=== PATIENT | male | born 1975 | race Caucasian/White ===

== ENCOUNTER 2016-10-22 12:26 | Emergency (ER) | payer OTHER ==
--- NOTE | ~2016-10-22 | ER ---
PATIENT'S NAME: GAURANG CHAMBERLAIN [facility] AGE: 41 Y [address] ROOM: [place] [address] LOCATION: ED ADMIT DATE: 10/22/2016 ER/Outpatient Report DISCHARGE DATE: 10/22/2016 FAMILY PHYSICIAN: Ruben Mitchell MD ATTENDING PHYSICIAN: Ruben Resendiz Time of Admission: 1226 hours. Time of Evaluation: 1245 hours. CHIEF COMPLAINT: Right flank/back pain. HISTORY OF PRESENT ILLNESS: Gaurang is a 41-year-old male presents with his to the emergency room with an onset of right flank pain/back pain that originated around 8 o'clock this morning. He reports he had quite a bit of this type of pain on Tuesday and then it did seize and he thought maybe he passed a little stone. He reports he was pain-free all day up until 8 o'clock this morning. The patient does have a history of kidney stones in the past, reports with all of them he has been able to pass them on his own. He reports his urinary output has been decreased, but he denies any blood in the urine. He denies any nausea at this time. No vomiting or diarrhea. No fevers and/or chills. The patient has not experienced any recent URI symptoms. His bowel movements have been regular. PAST MEDICAL HISTORY: 1. History of nephrolithiasis. 2. Postoperative right hip replacement, May 2016. 3. History of ureteral surgeries, as an infant. ALLERGIES: KEFLEX. CURRENT MEDICATIONS: The patient denies taking any medications on a routine basis. Denies any vitamins or calcium supplements. SOCIAL HISTORY: The patient is . He does live in [place], [place]. He does chew tobacco, nonsmoker. No regular alcohol use. He is up to date with his immunizations. FAMILY HISTORY: Not obtained. PATIENT'S NAME: GAURANG CHAMBERLAIN [facility] AGE: 41 Y [address] ROOM: [place] [address] LOCATION: [facility] ADMIT DATE: 10/22/2016 ER/Outpatient Report DISCHARGE DATE: 10/22/2016 FAMILY PHYSICIAN: Ruben Mitchell MD ATTENDING PHYSICIAN: Ruben Resendiz REVIEW OF SYSTEMS: All systems reviewed by me and negative with the exception of those discussed in the HPI. PHYSICAL EXAMINATION: VITAL SIGNS: Current height 6 feet 1 inch, weight 154.2 kg, temp 97.5, pulse 80, respirations 18, and blood pressure is 123/86. He is 94% on room scale. Current pain is 10/10. GENERAL: Gaurang is alert, cooperative, but in moderate distress due to the discomfort. SKIN: Overall is within normal limits. There is no pallor, no diaphoresis noted. EYES: Sclerae are nonicteric. Pupils equal, round, and reactive to light. CHEST AND LUNGS: Lung sounds are clear throughout. HEART: Regular rhythm. No murmurs appreciated. ABDOMEN: Soft, obese. There is no pain to his anterior abdomen. Right flank area is exquisitely tender. CVA tenderness is present. There is no pain to the left side. He does have a little bit of radiation from the right flank into the right scrotal area. LOWER EXTREMITIES: No peripheral edema is noted. NEUROLOGIC: No focal deficits are noted. Cranial nerves grossly intact. Gait is steady. LABORATORY DATA: WBC 15.3, hemoglobin 16.3, platelet count is 275. Sodium 139, potassium 3.9, creatinine 1.2. BUN is 16. Amylase and lipase within normal limits. Urinalysis does show 25 leukocytes, rare wbc's, 20-50 red blood cells, 0-2 epithelial, and rare bacteria. This was reviewed with Dr. Ching, urologist. IMAGING DATA: CT of the abdomen and pelvis, renal protocol was obtained. The radiologist did call and confirm a 6 mm proximal obstructing stone in the right ureter, this report was given to Dr. Ruben Resendiz. Official written report is pending. ASSESSMENT: 1. Right side proximal obstructing kidney stone, 6 mm. 2. Leukocytosis. PLAN: I did consult with Dr. Ching, in which I did call him at 1340 hours. He did give myself 2 options after he reviewed his history and current assessment. He did offer for the patient to go home and follow up in the office in 2 weeks for a KUB, take Flomax daily, and also continue with pain medications and PATIENT'S NAME: GAURANG CHAMBERLAIN [facility] AGE: 41 Y [address] ROOM: [place], [place] [address] LOCATION: [facility] ADMIT DATE: 10/22/2016 ER/Outpatient Report DISCHARGE DATE: 10/22/2016 FAMILY PHYSICIAN: Ruben Mitchell MD ATTENDING PHYSICIAN: Ruben Resendiz nausea medicines as needed. Where the other option is for him to be admitted here for pain control and fluids and for him to do a stent here over the weekend. I did review these options with the patient and he would prefer to go home and see how things go. The patient is sent home a script for Flomax 0.4 mg 1 p.o. daily #14 with no refills, [place] 10/325 one p.o. every 4 hours p.r.n. pain #24 with no refills, and also Zofran ODT 4 mg 1 p.o. every 6 hours p.r.n. nausea and vomiting, #30 with no refills. The patient did receive IV fluids, Flomax 0.4 mg x1, morphine 4 mg IV x1. His pain did decrease down to a 2-3 and he was very comfortable. He did not experience any nausea here in the emergency room. His is with him and she is very comfortable with these instructions and knows that if he would have any fever, chills, nausea, vomiting, and/or increased pain, he is to return to the emergency room. The patient is given a card to Dr. Ching's office and he is to follow up with him in 2 weeks. The patient is to increase his water intake to 2-3 L daily, strain his urine, and to cut down on caffeine intake. The patient was given 1 [place] in the emergency room prior to discharge to make sure that he could hold this down, he did well with it. Dr. Resendiz is in conjunction with plan of care, agreeable. The patient's condition is stable. JASON HERNANDEZ APRN FOR MD ARCHANA HARRISON/jackl /[id number] d: 10/22/162113 t: 05/16/17 1640, OUTPATIENT REPORT
[2016-10-22 13:03] LABS: BILIRUBIN URINE NEGATIVE (NEGATIVE); BLOOD URINE 250 /UL (NEGATIVE); COLOR URINE YELLOW (YELLOW); GLUCOSE URINE NEGATIVE (NEGATIVE); KETONE URINE NEGATIVE (NEGATIVE); LEUKOCYTES URINE 25 /UL (NEGATIVE); NITRITE URINE NEGATIVE (NEGATIVE); PROTEIN URINE 15 mg/dL (NEGATIVE); SPEC GRAVITY URINE 1.025 (1.003-1.035); TURBIDITY URINE CLEAR (CLEAR); UROBILINOGEN URINE NORMAL (NORMAL)
[2016-10-22 13:09] LABS: BASOPHIL # 0.1 K/uL (0.0-0.2); BASOPHIL % 0.6 %; EOSINOPHIL # 0.4 K/uL (0.0-0.5); EOSINOPHIL % 2.3 %; HEMATOCRIT 46.8 % (37.0-53.0); HEMOGLOBIN 16.3 g/dL (12.0-17.0); IMMATURE GRANULOCYTE # 0.1 K/uL (0.0-0.3); IMMATURE GRANULOCYTE % 0.5 %; LYMPHOCYTE # 1.3 K/uL (0.8-4.0); LYMPHOCYTE % 8.3 %; MCH 30.6 pg (27.0-34.0); MCHC 34.8 gm/dL (32.0-36.5); MONOCYTE # 1.5 K/uL (0.0-1.0); MONOCYTE % 9.5 %; MPV 9.4 fl (9.4-12.4); NEUTROPHIL % 78.8 %; NRBC % 0 /100WBC (0-0.00); PLATELET COUNT 275 K/uL (150-450); RBC 5.32 M/uL (4.00-6.00); RDW-CV 12.5 % (11.9-14.6); WBC 15.3 K/uL (4.0-11.0)
[2016-10-22 13:11] LABS: BACTERIA URINE RARE (NEGATIVE); EPITHELIAL URINE 0-2 #/HPF (NEGATIVE); RBC URINE 20-50 #/HPF (NEGATIVE); WBC URINE RARE #/HPF (NEGATIVE)
[2016-10-22 13:26] LABS: ALBUMIN 3.5 gm/dL (3.5-5.0); ALK PHOS 76 IU/L (33-138); ALT 28 IU/L (12-78); ANION GAP 13.9 (10.0-19.0); AST 17 IU/L (10-40); BLOOD UREA NITROGEN 16 mg/dL (6-24); CALCIUM 8.6 mg/dL (8.5-10.5); CHLORIDE 106 mMol/L (96-110); CO2 23 mMol/L (22-32); CREATININE 1.2 mg/dL (0.6-1.3); ESTIMATED GFR (MDRD EQUATION) > 60; POTASSIUM 3.9 mMol/L (3.7-5.1); SODIUM 139 mMol/L (135-145); TOTAL BILIRUBIN 0.5 mg/dL (0.0-1.5); TOTAL PROTEIN 7.2 g/dL (6.0-8.4)
[2016-10-23] MEDS ORDERED: FLOMAX0.4 MG PO (16:18)
[2016-10-23] MEDS ORDERED: NORCO 5-325 TA1 EACH PO (16:19)
[2016-10-23] MEDS ORDERED: DITROPAN XL5 MG PO (16:20)
[2016-11-03] MEDS ORDERED: ONDANSETRON ODT4 MG PO (10:23)
[2016-11-09] MEDS ORDERED: NORCO 5-325 TA1 EACH PO (11:47)
[2016-11-30] MEDS ORDERED: FLOMAX0.4 MG PO (14:50)
== END 2016-10-22 14:12 | disposition disaster alternative care site (69) ==
LOC: GMED 12:26
PROVIDERS: Nurse Practitioner Family
DX: N20.0 Calculus of kidney (principal); D72.829 Elevated white blood cell count, unspecified; F17.220 Nicotine dependence, chewing tobacco, uncomplicated; Z88.1 Allergy status to other antibiotic agents
CPT/HCPCS: J1885; J2270; J7030

== ENCOUNTER 2016-10-22 19:32 | Observation (INO) | payer OTHER ==
[~2016-10-22] VITALS: Ht 185.4 cm; Wt 154.7 kg
--- NOTE | ~2016-10-22 | HP ---
PATIENT'S NAME: MARCUS CHAMBERLAIN [facility] AGE: 41 Y [address] ROOM: [place] [address] LOCATION: [facility] [place] ADMIT DATE: 10/22/2016 History & Physical DISCHARGE DATE: FAMILY PHYSICIAN: IRINEO LEE MD ATTENDING PHYSICIAN: SHAYY CRAIG V DATE OF SERVICE: CHIEF COMPLAINT: Back pain. HISTORY OF PRESENT ILLNESS: The patient is a 41-year-old male who was seen in the ER earlier with sudden onset of right flank/back pain. He was found to have a 6 mm obstructing stone with moderate hydronephrosis. He elected to go home and to try and let the stone pass on its own. However, he came back several hours later with worsening pain. He denies any fevers, chills, nausea, vomiting, chest pain, or palpitations. REVIEW OF SYSTEMS: All systems have been reviewed and negative aside from pertinent positives mentioned above. PAST MEDICAL HISTORY: The patient denies. 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 CURRENT MEDICATIONS: None. SOCIAL HISTORY: The patient admits to chewing tobacco, but no other toxic habits. FAMILY HISTORY: Reviewed and noncontributory due to known underlying etiology for his presentation. PHYSICAL EXAMINATION: VITAL SIGNS: Stable. GENERAL: Well-developed, well-nourished, obese middle-aged male, in no acute distress. PATIENT'S NAME: MARCUS CHAMBERLAIN [facility] AGE: 41 Y [address] ROOM: [place] [address] LOCATION: [facility] [place] ADMIT DATE: 10/22/2016 History & Physical DISCHARGE DATE: FAMILY PHYSICIAN: IRINEO LEE MD ATTENDING PHYSICIAN: SHAYY CRAIG V LUNGS: Clear to auscultation. HEART: Rate is regular. There is right costovertebral angle tenderness. VASCULAR: A 2+ pedal pulses. MUSCULOSKELETAL: Unremarkable. LABORATORY DATA: Review of studies significant for a creatinine of 1.2. White count of 15.3. Urinalysis with blood only. ASSESSMENT AND PLAN: This is a 41-year-old male who is admitted for symptom control for right urolithiasis. We will provide him with Tylenol for mild pain, Percocet for moderate pain, and morphine for severe pain. We will also put him on Flomax and IVF. The patient has been communicated with Dr. Ching and a cystoscopy is planned in the morning. He will be made n.p.o. Additional management will depend on clinical course. Time dedicated to this patient's encounter is 25 minutes. MD ANDERSON MORGAN/jennifer /[id number] D: 241 T: 650 HISTORY & PHYSICAL
--- NOTE | ~2016-10-22 | CON ---
PATIENT'S NAME: MARCUS CHAMBERLAIN [facility] AGE: 41 Y [address] ROOM: [place] [address] LOCATION: [facility] [place] ADMIT DATE: 10/22/2016 Consultation DISCHARGE DATE: FAMILY PHYSICIAN: IRINEO LEE MD ATTENDING PHYSICIAN: SHAYY CRAIG V DATE OF CONSULTATION: 10/22/2016 CHIEF COMPLAINT: Right flank pain. HISTORY OF PRESENT ILLNESS: The patient is a pleasant 41-year-old male, who was admitted for pain control, given persistent severe right flank pain. He had presented earlier in the afternoon with complaints of right flank pain, where he had underwent a CT scan, and was found to have a proximal 6-mm right ureteral calculus with associated hydronephrosis, as well as a separate nonobstructing 8-mm mid pole renal calculus. He does have a previous history of nephrolithiasis, having passed on its own, but also requiring a stent for another episode. He also reports a remote history of requiring a urethral surgery as an . His white blood cell count was 15.3, and his serum creatinine level was 1.2. His urinalysis was negative for nitrites, and only 25 leukocytes with rare bacteria were noted. His pain had actually been quite well controlled in the Emergency Room earlier today, and the patient was wanting to try a trial of stone passage. However, he re-presented to the Emergency Room later this evening, and was admitted to the Hospitalist team for pain control. The patient denies any current nausea, vomiting, or diarrhea. He denied any fevers or chills. The patient has no further questions or concerns at this time. PAST MEDICAL HISTORY: Recurrent nephrolithiasis. PAST SURGICAL HISTORY: 1. Prior urethral procedures as a child. 2. Reported history of previous stent placement for ureteral calculus. 3. Right hip replacement in May 2016. ALLERGIES: TO KEFLEX. MEDICATIONS: See hospitalization medication reconciliation. SOCIAL HISTORY: PATIENT'S NAME: MARCUS CHAMBERLAIN [facility] AGE: 41 Y [address] ROOM: [address] [address] LOCATION: [facility] [place] ADMIT DATE: 10/22/2016 Consultation DISCHARGE DATE: FAMILY PHYSICIAN: IRINEO LEE MD ATTENDING PHYSICIAN: SHAYY CRAIG V The patient is . He is a non-smoker. He does drink some alcohol. FAMILY HISTORY: The patient does report a family history of nephrolithiasis in his father. REVIEW OF SYSTEMS: A full 10+ point review of systems was performed with pertinent positive and negative findings included in the history of present illness. All other systems were reviewed and are otherwise negative. PHYSICAL EXAMINATION: VITAL SIGNS: The patient's height is 6 feet 1 inch and his weight is 341 pounds. CONSTITUTIONAL: No acute distress. Hemodynamically stable. HEENT: Extraocular muscles are intact. Mucous membranes were moist. No drainage per ears or nose. CARDIAC: Good peripheral perfusion. No tachycardia. RESPIRATORY: No audible wheezing or distress. ABDOMEN: Soft, nontender, and nondistended. MUSCULOSKELETAL: He moves all extremities. NEUROLOGIC: No focal deficits were noted. HEMATOLOGIC: No bruising or active sites of bleeding. PSYCHIATRIC: Normal affect and answers questions appropriately. IMAGING: I personally reviewed a CT scan consistent with findings noted above in the history of present illness. IMPRESSION: 1. Recurrent nephrolithiasis. 2. Right proximal ureteral calculus. 3. Right renal calculus. PLAN: I had a long discussion today with the patient regarding my findings. We discussed his treatment options including a trial of stone passage, cystoscopy with stent placement, extracorporeal shock wave lithotripsy, and ureteroscopy with laser lithotripsy. Given the proximal nature of the stone, we discussed cystoscopy with placement of indwelling ureteral stent with manipulation of the stone back up into the kidney, and bringing him back at a later date for extracorporeal shock wave lithotripsy. Given his body habitus, he will have increased [id number] distance, making his overall success rate potentially slightly lower for shock wave lithotripsy, but I certainly think he would be worth at least simulating on the lithotripsy treatment bed to see if we could get his stone into focal point for lithotripsy. Alternatively, could consider PATIENT'S NAME: MARCUS CHAMBERLAIN [facility] AGE: 41 Y [address] ROOM: [address] [address] LOCATION: [facility] [place] ADMIT DATE: 10/22/2016 Consultation DISCHARGE DATE: FAMILY PHYSICIAN: IRINEO LEE MD ATTENDING PHYSICIAN: SHAYY CRAIG V ureteroscopy with laser lithotripsy. The patient's questions and concerns were addressed, and he has no further at this time. Again, we will plan to take the patient back to the Operating Room tomorrow morning for a cystoscopy, right ureteral stone manipulation, and stent placement. If this pain is well controlled following the procedure, he should be able to get discharged home tomorrow by the Hospitalist team. KELSIE NEAL MD GP/modorion /[id number] d: 10/23/16351 t: 10/23/161121, CONSULTATION REPORT
--- NOTE | ~2016-10-22 | OR ---
PATIENT'S NAME: MARCUS CHAMBERLAIN [facility] AGE: 41 Y [address] ROOM: [place] [address] LOCATION: [facility] [place] ADMIT DATE: 10/22/2016 OR/Procedure Report DISCHARGE DATE: 10/23/2016 FAMILY PHYSICIAN: Ruben Mitchell MD ATTENDING PHYSICIAN: Cesar Coleman V SURGEON: Murali Ching MD COLLECT ON DELIVERY CLERK: None. DATE OF PROCEDURE: 10/23/2016 PREOPERATIVE DIAGNOSES: 1. Right proximal ureteral calculus. 2. Right nephrolithiasis. POSTOPERATIVE DIAGNOSES: 1. Right proximal ureteral calculus. 2. Right nephrolithiasis. OPERATIVE PROCEDURES: 1. Cystoscopy with manipulation of right proximal ureteral calculus. 2. Cystoscopy with placement of indwelling right ureteral stent. INDICATIONS FOR PROCEDURE: The patient is a pleasant 41-year-old male, who had presented with right flank pain, where he was ultimately found to have a 6 mm proximal right ureteral calculus with associated hydronephrosis as well as a nonobstructing mid pole 8 mm right renal calculus. The patient was not doing well with a trial of stone passage and required admission to the hospital for pain control. The patient was explained the risks, benefits, indications, and alternatives to above procedure and wished to proceed and consented freely. ANESTHESIA ADMINISTERED: Monitored anesthesia care. DESCRIPTION OF OPERATION: The patient was brought back to the operating room where he was placed on the OR table in the supine position. A surgical time- out was called where patient identification, surgical site, and procedure were then verified. We also did verify that the patient received an IV Levaquin antibiotic within an hour of beginning the procedure. The patient underwent successful administration of monitored anesthesia care. The patient was then moved and placed in a low lithotomy position where he was then prepped and draped in the usual sterile fashion. I began by advancing the rigid cystoscope easily into the patient's urinary bladder. Of note, he did have a somewhat hypospadias meatus with urethral opening, located along the ventral aspect of his penile shaft about 1 cm subcoronal in location. As I was advanced into his anterior urethra, he did have at least one urethral stricture along his anterior urethra, which was approximately 20- to 22-Cameroonian PATIENT'S NAME: MARCUS CHAMBERLAIN [facility] AGE: 41 Y [address] ROOM: [address] [address] LOCATION: [facility] [place] ADMIT DATE: 10/22/2016 OR/Procedure Report DISCHARGE DATE: 10/23/2016 FAMILY PHYSICIAN: Ruben Mitchell MD ATTENDING PHYSICIAN: Cesar Coleman V in caliber and I was able to carefully advance the rigid cystoscope past this urethral stricture, which was somewhat soft in nature. His prostatic urethra was notable for some mild bilobar hyperplasia of the prostate. Upon entering to his bladder, full biggs cystoscopy was performed and there was no evidence of any bladder tumors, cellules, or diverticula. His ureteral orifices were noted to be in their orthotopic location. He did have some mild bladder trabeculation noted. I then carefully cannulated the patient's right ureteral orifice with the sensor guidewire and navigated the wire up to the level of the proximal ureteral calculus. Then, over the wire, I advanced a #5-Cameroonian open-ended ureteral catheter up to the level of the proximal stone. I then removed the wire leaving the catheter in place. Then, using a saline flush, I was able to carefully manipulate the stone back up into his mid pole right renal collecting system. Now, I could visualize both stones within the mid pole of his renal collecting system. Then, through the catheter, I readvanced the Sensor guidewire through the catheter and removing the catheter leaving the wire in place. Then, over the wire, I advanced a 4.8-Cameroonian multi-length ureteral stent, noting a good curl fluoroscopically in the patient's right renal pelvis as well as a good curl visually in the patient's bladder. I then emptied his bladder and withdrew the cystoscope. The patient did tolerate the procedure well. The patient was then taken out of the lithotomy position where he was then awoken from monitored anesthesia care, transferred to the recovery bed, and transported to the recovery room in good condition. COMPLICATIONS: None. DRAINS: Indwelling 4.8-Cameroonian multi-length ureteral stent. SPECIMENS: None. ESTIMATED BLOOD LOSS: Minimal. FOLLOWUP PLAN: We will tentatively plan to bring the patient back for followup in several weeks (November 09, 2016) for definitive treatment of his 2 right renal stones with extracorporeal shockwave lithotripsy and possible stent removal at that time. MD PATRICIA SINGH/jennifer /[id number] d: 10/23/162019 t: 10/24/16 1550, OPERATIVE SUMMARY
--- NOTE | ~2016-10-22 | ER ---
PATIENT'S NAME: MARCUS CHAMBERLAIN [facility] AGE: 41 Y [address] ROOM: [place] [address] [place]: [facility] [place] ADMIT DATE: 10/22/2016 ER/Outpatient Report DISCHARGE DATE: FAMILY PHYSICIAN: IRINEO LEE MD ATTENDING PHYSICIAN: SHAYY CRAIG V Time of Arrival: 1934 hours. Time of Exam: 1940 hours. CHIEF COMPLAINT: Right flank pain. HISTORY OF PRESENT ILLNESS: The patient states he was here earlier in the ER approximately 1230 hours due to right flank pain, was diagnosed as having a 6 mm kidney stone on the right, was allowed to go home to try and pass on his own. He states he returns tonight because the pain continues, and the pain medication is not able to control his discomfort. ALLERGIES: KEFLEX. CURRENT MEDICATIONS: 1. Zofran. 2. Flomax. 3. [place]. These medications were prescribed for him today after he left. PAST MEDICAL HISTORY: Left kidney disease, kidney stones. PAST SURGERIES: Right hip replacement on 06/08/2016 and penis surgery as an infant. SOCIAL HISTORY: Denies use of smoking tobacco but does chew tobacco. Denies use of drugs. Drinks alcohol on an occasional basis. REVIEW OF SYSTEMS: All negative other than those mentioned in the HPI. PHYSICAL EXAMINATION: VITAL SIGNS: He weighed 136.4 kilograms, blood pressure is 172/104, pulse of 83, respirations 18, temperature of 97.4, O2 saturation was 97% on room air. GENERAL: He is awake, alert, and oriented x4. PATIENT'S NAME: MARCUS CHAMBERLAIN [facility] AGE: 41 Y [address] ROOM: [place] [address] LOCATION: [facility] [place] ADMIT DATE: 10/22/2016 ER/Outpatient Report DISCHARGE DATE: FAMILY PHYSICIAN: IRINEO LEE MD ATTENDING PHYSICIAN: SHAYY CRAIG V SKIN: [place], warm, and dry. RESPIRATIONS: Even and nonlabored. LUNGS: Lung sounds are clear throughout. HEART: Regular rate and rhythm. ABDOMEN: Soft and nondistended. Bowel sounds are present. He is tender in the right flank area. EMERGENCY DEPARTMENT COURSE: Dr. Ching was contacted regarding the patient. He is familiar with the patient. He wants the patient to be admitted for pain control, and he will place stents in the morning. Asked that I contact the hospitalist. Dr. Craig was contacted. Report was given. The patient will be admitted. IMPRESSION: A 6 mm obstructing right renal calculi with moderate right hydronephrosis. The patient also has an 8 mm nonobstructing renal calculi of the mid right kidney. PLAN: The patient will be placed in observation with hospitalist to see the patient. The patient will be placed n.p.o. after midnight. Did start a saline lock in the ER and gave him Toradol 30 mg IV. The patient and his are aware of plan of care. HARDEEP OSMAN APRN FOR MD LA ALEXANDER/jennifer /[id number] d: 10/23/16 0426 t: 10/25/16 1811, OUTPATIENT REPORT
--- NOTE | 2016-10-23 04:13 | NUR ---
ADMIT FOR KIDNEY STONE X2 (6MM & 8MM). PAIN STARTED IN THE TUESDAY MORNING GRADUALLY GETTING WORSE DURING UNK GRADUATION FOR FAMILY MEMBER. PAIN IS MOSTLY TO R) FLANK. SURGICAL HX INCLUDES URINARY SX YOUNG CHILD & R) TOTAL HIP REPLACEMENT 05/2016. MEDICAL HX INCLUDES HIP DISPLASIA, R) HIP REPLACEMENT, HX KIDNEY STONES THIS IS HIS 3 BOUT (HAS NEEDED STENTS WITH PREVIOUS KIDNEY STONES).
--- NOTE | 2016-10-23 06:54 | NUR ---
Significant Event: ADMIT AT 2124. PAIN USUAL AT R) FLANK BUT HAS BEEN TOLERABLE THIS SHIFT. LAST PAIN MED WAS IN ER. IV TO L) WRIST FLUSHES WELL AND GOOD BLOOD RETURN. IV FLUIDS INFUSING WITHOUT DIFFICULTY. UP INDEPENDENTLY. IS VOIDING THROUGH [facility]. VSS AND AFEBRILE. DR NEAL SAW PATIENT IN EVENING. HAS BEEN NPO SINCE MIDNIGHT AND WILL HAVE CYSTO WITH STENT PLACEMENT TODAY. PERMITS ARE SIGNED. Follow up:
[2016-10-23] MEDS ORDERED: FLOMAX0.4 MG PO (16:18)
[2016-10-23] MEDS ORDERED: NORCO 5-325 TA1 EACH PO (16:19)
[2016-10-23] MEDS ORDERED: DITROPAN XL5 MG PO (16:20)
[2016-11-03] MEDS ORDERED: ONDANSETRON ODT4 MG PO (10:23)
[2016-11-09] MEDS ORDERED: NORCO 5-325 TA1 EACH PO (11:47)
[2016-11-30] MEDS ORDERED: FLOMAX0.4 MG PO (14:50)
== END 2016-10-23 17:35 | disposition disaster alternative care site (69) ==
LOC: GMED 19:32 → GMSU 20:33
PROVIDERS: ADMIT Internal Medicine
PROC: 0T768DZ Dilation of Right Ureter with Intraluminal Device, Via Natural or Artificial Opening Endoscopic (ICD-10-PCS; principal; 2016-10-23)
DX: N13.2 Hydronephrosis with renal and ureteral calculous obstruction (principal); F17.220 Nicotine dependence, chewing tobacco, uncomplicated; Z96.641 Presence of right artificial hip joint; Z98.890 Other specified postprocedural states
CPT/HCPCS: C1769; C2617; G0378; J1885; J1956; J7030

== ENCOUNTER → 2016-11-09 | Day surgery (SDC) | payer OTHER ==
[~2016-11-09] VITALS: Ht 185.4 cm; Wt 145.8 kg
[~2016-11-09] MED LIST: DITROPAN XL5 MG PO; FLOMAX0.4 MG PO; NORCO 5-325 TA1 EACH PO; ONDANSETRON ODT4 MG PO
--- NOTE | ~2016-11-09 | OR ---
PATIENT'S NAME: MARCUS CHAMBERLAIN [facility] AGE: 41 Y [address] ROOM: [place] [address] [place]: [facility] [place] ADMIT DATE: 11/09/2016 OR/Procedure Report DISCHARGE DATE: FAMILY PHYSICIAN: IRINEO MITCHELL MD ATTENDING PHYSICIAN: KELSIE CHING SURGEON: Kelsie Ching MD BIN PILER: None. DATE OF PROCEDURE: 11/09/2016 PREOPERATIVE DIAGNOSES: 1. Right nephrolithiasis. 2. Right indwelling ureteral stent. POSTOPERATIVE DIAGNOSES: 1. Right nephrolithiasis. 2. Right indwelling ureteral stent. PROCEDURES: 1. Right extracorporeal shockwave lithotripsy. 2. Cystoscopy with removal of indwelling right ureteral stent. ANESTHESIA ADMINISTERED: Monitored anesthesia care. INDICATIONS FOR PROCEDURE: The patient is a pleasant 41-year-old male who presented with right flank pain and was ultimately found to have a 6 mm proximal right ureteral calculus with associated hydronephrosis as well as a nonobstructing mid pole 8 mm right renal calculus. The patient was not doing well with a trial of stone passage and required admission to the hospital for pain control. He had underwent cystoscopy with manipulation of right ureteral calculus back up into the kidney. Along with placement of indwelling right ureteral stent on October 23, 2016. The patient presents today for definitive treatment of his stones. He was explained the risks, benefits, indications, and alternatives to the above procedure and wished to proceed and consented freely. DESCRIPTION OF OPERATION: The patient was brought back to the operating room, where he was placed on the lithotripsy treatment bed in the supine position. A surgical time-out was called where patient identification, procedure site and procedure was then verified. We also did verify that the patient received IV Levaquin antibiotic within an hour of beginning the procedure. The patient underwent successful administration of monitored anesthesia care. The patient was then kept in the supine position where we then brought his right renal pelvis stone into focal point using fluoroscopy. Again, he did have what appeared to be an also a right mid pole or lower pole renal calculus as well as the right renal pelvis calculus. I decided to focus on the right renal PATIENT'S NAME: MARCUS CHAMBERLAIN [facility] AGE: 41 Y [address] ROOM: [place] [address] LOC[place]: [facility] [place] ADMIT DATE: 11/09/2016 OR/Procedure Report DISCHARGE DATE: FAMILY PHYSICIAN: IRINEO MITCHELL MD ATTENDING PHYSICIAN: KELSIE CHING pelvis stone as this is the one who had given him trouble initially to start with. After bringing this renal pelvis stone into focal point, we then began performing shockwave lithotripsy starting at 16 kilovolts of energy and working up sequentially to 24 kilovolts in energy. We did need to use the full 3000 shocks on the renal pelvis stone as this appeared to be somewhat more solid, but towards the end of our fragmentation it did start to break up nicely, but again I did not feel like we had enough shocks for the other stone and that we needed to focus all of our shocks on the right renal pelvis stone. Given good fragmentation of the right renal pelvis stone, I opted to remove the stent. Using sterile technique, his genital area was then prepped and draped in usual sterile fashion and then I carefully advanced a flexible cystoscope easily into the patient's urinary bladder. His anterior urethra was within normal limits. His posterior urethra was notable for some mild bilobar hyperplasia of the prostate. I then used the stent graspers to grab the distal end of the indwelling right ureteral stent and this was removed without complication. The patient did tolerate the procedure well. The patient was then awoken from monitored anesthesia care where he was then transferred to recovery bed and transported to the recovery room in good condition. COMPLICATIONS: None. DRAINS: None. SPECIMENS: None. ESTIMATED BLOOD LOSS: Minimal. FOLLOWUP PLAN: We will see what the patient would like to do regarding his right lower pole renal calculus. To see if, he would like to just go ahead and schedule an another extracorporeal shockwave lithotripsy for the for the 2nd stone. Given the size of 8 mm, I do not think he would have a good chance of passing the stone on his own. Given the fact that he struggled with the 6 mm stone. The patient's questions and concerns were addressed and he has no further at this time. KELSIE CHING MD GP/modl /[id number] PATIENT'S NAME: MARCUS CHAMBERLAIN [facility] AGE: 41 Y [address] ROOM: [place] [address] [place]: [facility] [place] ADMIT DATE: 11/09/2016 OR/Procedure Report DISCHARGE DATE: FAMILY PHYSICIAN: IRINEO MITCHELL MD ATTENDING PHYSICIAN: KELSIE CHING CC: Irineo Mitchell MD d: 11/09/16 1756 t: 11/17/16 0826, OPERATIVE SUMMARY
== END | disposition disaster alternative care site (69) ==
LOC: GPOC 11-02 09:00 → GSDC 07:00
PROC: 0TP98DZ Removal of Intraluminal Device from Ureter, Via Natural or Artificial Opening Endoscopic (ICD-10-PCS; principal; 2016-11-09)
PROC: 0TF3XZZ Fragmentation in Right Kidney Pelvis, External Approach (ICD-10-PCS; 2016-11-09)
DX: N13.2 Hydronephrosis with renal and ureteral calculous obstruction (principal); Z46.6 Encounter for fitting and adjustment of urinary device; F17.220 Nicotine dependence, chewing tobacco, uncomplicated; E66.9 Obesity, unspecified; Z96.641 Presence of right artificial hip joint
CPT/HCPCS: J1956; J2001; J7120

== ENCOUNTER → 2016-11-30 | Day surgery (SDC) | payer OTHER ==
[~2016-11-30] VITALS: Ht 185.4 cm; Wt 144.5 kg
--- NOTE | ~2016-11-30 | OR ---
PATIENT'S NAME: MARCUS CHAMBERLAIN [facility] AGE: 41 Y [address] ROOM: [place] [address] [place] [facility] [place] DATE: 11/30/2016 OR/Procedure Report DISCHARGE DATE: FAMILY PHYSICIAN: IRINEO MITCHELL MD ATTENDING PHYSICIAN: KELSIE CHING SURGEON: Kelsie Ching MD INFO PRINT PRESS OPERATOR: None. DATE OF PROCEDURE: 11/30/2016 PREOPERATIVE DIAGNOSES: 1. Right ureteral calculus. 2. History of right nephrolithiasis. POSTOPERATIVE DIAGNOSES: 1. Right ureteral calculus. 2. History of right nephrolithiasis. PROCEDURE: Right extracorporeal shockwave lithotripsy. ANESTHESIA ADMINISTERED: Monitored anesthesia care. INDICATIONS FOR PROCEDURE: The patient is a pleasant 41-year-old male, who had recently presented with right flank pain where he was ultimately found to have a 6 mm proximal right ureteral calculus with associated hydronephrosis as well as a nonobstructing mid pole 8 mm right renal calculus. The patient was not doing well with a trial of stone passage and required admission to the hospital for pain control. He initially underwent cystoscopy with stent placement and right stone manipulation on October 23, 2016. He then underwent right extracorporeal shockwave lithotripsy and removal of indwelling ureteral stent on November 09, 2016. We did have to focus all of our shocks on the right renal pelvis stone and did not get to treat the 8 mm renal calculus. On followup plain film KUB today, it does appear that the right renal calculus is now migrated into his proximal ureter with at least one larger fragment within his proximal ureter but also several smaller fragments just proximal to the stone. The patient was explained the risks, benefits, indications, and alternatives to the procedure and wished to proceed and consented freely. DESCRIPTION OF OPERATION: The patient was brought back to the operating room, where he was placed on the OR table in the supine position. A surgical time- out was called where patient identification, surgical site, and procedure was then verified. We also did verify that the patient received an IV Levaquin antibiotic prior to beginning the procedure. The patient had been kept in the supine position on the lithotripsy treatment bed. Despite the patient's large sides, we still were able to bring the proximal right ureteral calculus into focal point using fluoroscopy. We then began performing shockwave lithotripsy PATIENT'S NAME: MARCUS CHAMBERLAIN [facility] AGE: 41 Y [address] ROOM: [place] [address] [place] [facility] [place] DATE: 11/30/2016 OR/Procedure Report DISCHARGE DATE: FAMILY PHYSICIAN: IRINEO MITCHELL MD ATTENDING PHYSICIAN: KELSIE CHING starting at 14 kilovolts and working up sequentially to 24 kilovolts in energy. Approximately, 3200 shocks were delivered to the proximal right ureteral stones and it did appear that we had nice fragmentation by fluoroscopic monitoring. The patient did tolerate the procedure well. The patient was then awoken from monitored anesthesia care where he was then transferred to recovery bed and transported to the recovery room in good condition. COMPLICATIONS: None. DRAINS: None. SPECIMENS: None. ESTIMATED BLOOD LOSS: Minimal. FOLLOWUP PLAN: We will plan to have the patient back for followup in Urology Clinic in approximately four weeks with a plain film KUB to make sure that there were no residual fragments remaining. KELSIE CHING MD GP/modl /[id number] CC: Irineo Mitchell MD d: 11/30/16 2045 t: 12/02/16 1833, OPERATIVE SUMMARY
== END | disposition disaster alternative care site (69) ==
LOC: GSDC 07:00
PROC: 0TF6XZZ Fragmentation in Right Ureter, External Approach (ICD-10-PCS; principal; 2016-11-30)
DX: N13.2 Hydronephrosis with renal and ureteral calculous obstruction (principal); Z88.1 Allergy status to other antibiotic agents; Z96.641 Presence of right artificial hip joint; Z79.899 Other long term (current) drug therapy
CPT/HCPCS: J1100; J1956; J2001; J2405; J7120